=== PATIENT | female | born 1955 | race American Indian/Alaskan Native ===

== ENCOUNTER 2017-02-16 18:30 | Emergency (ER) | payer BC ==
[2017-02-16] MEDS ORDERED: TYLENOL PO ONE (18:49)
--- NOTE | 2017-02-16 18:50 | Emergency Department Report ---
- General Chief Complaint: Fever Stated Complaint: BODYACHES,FEVER,SORETHROAT Time Seen by Provider: 02/16/17 18:46 Source: patient Mode of arrival: Ambulatory Limitations: No Limitations - History of Present Illness Initial Comments: 61-year-old female past medical history hypertension hypothyroidism presents with complaint of onset of sore throat and body aches today. Patient was in usual state of health until today. Denies any nausea or vomiting no significant fevers does state that the body aches are quite bothersome. Feels slightly weaker than usual but is ambulatory and is able to tolerate by mouth without any difficulty reports no nausea no abdominal pain no vomiting. Patient denies any dysuria no foul odor to urine no increased urinary frequency. 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 Exposure to multiple patients with URI strep and flu. Patient is awake alert and oriented 3 does not appear to be in acute distress no recent dental work no recent illnesses no recent antibiotic use. Denies any recent travel outside the country. Is fully ambulatory without assistance. MD Complaint: sore throat, other (body aches) Onset/Timin -: hour(s) Severity: mild Context: sick contacts Associated Symptoms: chills, myalgias, sore throat, cough (very mild cough not productive no respiratory distress) - Related Data Previous Rx's Medication Instructions Recorded Last Taken Type Cephalexin [Keflex] 500 mg PO QID #20 cap 09/26/16 Unknown Rx Sulfamethoxazole/Trimethoprim 1 each PO BID #10 tablet 09/26/16 Unknown Rx [Bactrim DS TAB] Amoxicillin/K Clav Tab [Augmentin 1 tab PO Q12HR #20 tab 02/16/17 Unknown Rx 875 mg] Benzocaine/Menthol [Cepacol Sore 1 each MM Q4H PRN #18 lozenge 02/16/17 Unknown Rx Throat Lozenge] Ibuprofen [Motrin] 600 mg PO Q8H PRN #30 tablet 02/16/17 Unknown Rx Allergies Allergy/AdvReac Type Severity Reaction Status Date / Time No Known Allergies Allergy Unverified 01/19/16 10:25 ED Review of Systems ROS: Stated complaint: BODYACHES,FEVER,SORETHROAT Other details as noted in HPI Constitutional: malaise. denies: chills, fever Eyes: denies: eye pain, eye discharge, vision change ENT: throat pain. denies: ear pain Respiratory: cough. denies: shortness of breath, wheezing Cardiovascular: denies: chest pain, palpitations Endocrine: no symptoms reported Gastrointestinal: denies: abdominal pain, nausea, diarrhea Genitourinary: denies: urgency, dysuria, discharge Musculoskeletal: denies: back pain, joint swelling, arthralgia Skin: denies: rash, lesions Neurological: denies: headache, weakness, paresthesias Psychiatric: denies: anxiety, depression Hematological/Lymphatic: denies: easy bleeding, easy bruising ED Past Medical Hx - Past Medical History Previous Medical History?: Yes Hx Hypertension: Yes - Surgical History Past Surgical History?: No - Social History Smoking Status: Never Smoker Substance Use Type: None - Medications Home Medications: Home Medications Medication Instructions Recorded Confirmed Last Taken Type Cephalexin [Keflex] 500 mg PO QID #20 cap 09/26/16 Unknown Rx Sulfamethoxazole/Trimethoprim 1 each PO BID #10 tablet 09/26/16 Unknown Rx [Bactrim DS TAB] Amoxicillin/K Clav Tab [Augmentin 1 tab PO Q12HR #20 tab 02/16/17 Unknown Rx 875 mg] Benzocaine/Menthol [Cepacol Sore 1 each MM Q4H PRN #18 lozenge 02/16/17 Unknown Rx Throat Lozenge] Ibuprofen [Motrin] 600 mg PO Q8H PRN #30 tablet 02/16/17 Unknown Rx ED Physical Exam - General Limitations: No Limitations General appearance: alert, in no apparent distress - Head Head exam: Present: atraumatic, normocephalic - Eye Eye exam: Present: normal appearance, PERRL, EOMI - ENT ENT exam: Present: mucous membranes moist - Expanded ENT Exam Expanded Throat exam: Positive: tonsillar erythema, tonsillar exudate (slight exudates right tonsillar pillar no peritonsillar abscess no visible large purulence oropharynx patent uvula is midline) - Neck Neck exam: Present: normal inspection, full ROM - Respiratory Respiratory exam: Present: normal lung sounds bilaterally. Absent: respiratory distress - Cardiovascular Cardiovascular Exam: Present: regular rate, normal rhythm. Absent: systolic murmur, diastolic murmur, rubs, gallop - GI/Abdominal GI/Abdominal exam: Present: soft, normal bowel sounds - Extremities Exam Extremities exam: Present: normal inspection, full ROM, normal capillary refill - Back Exam Back exam: Present: normal inspection - Neurological Exam Neurological exam: Present: alert, oriented X3, CN II-XII intact, normal gait - Psychiatric Psychiatric exam: Present: normal affect, normal mood - Skin Skin exam: Present: warm, dry, intact, normal color. Absent: rash ED Course Vital Signs 02/16/17 18:39 Temperature 99.9 F H Pulse Rate 94 H Blood Pressure 136/82 O2 Sat by Pulse 100 Oximetry ED Medical Decision Making - Medical Decision Making A/P: Pharyngitis versus tonsillitis 1-as patient is persistently exposed to strep and has visible tonsillar exudates we'll treat empirically, initial test negative throat culture sent. Negative 2-Augmentin 875 twice a day 10 days, Motrin 600 when necessary, throat lozenges when necessary, encourage patient to remain well-hydrated patient is tolerating fluids without significant difficulty. I advised patient to return to the ED if she has any shortness of breath chest pain difficulty swallowing solids or liquids any persistent nausea or vomiting or worsening lethargy. She understood these instructions clearly and will report back if she feels worse. 3-patient states she does not currently have a direct primary care doctor I will refer her to one Critical care attestation.: If time is entered above; I have spent that time in minutes in the direct care of this critically ill patient, excluding procedure time. ED Disposition Clinical Impression: Tonsillitis Disposition: DISCHARGED TO HOME OR SELFCARE Is pt being admited?: No Does the pt Need Aspirin: No Condition: Stable Instructions: Tonsillitis (ED) Prescriptions: Amoxicillin/K Clav Tab [Augmentin 875 mg] 1 tab PO Q12HR #20 tab Benzocaine/Menthol [Cepacol Sore Throat Lozenge] 1 each MM Q4H PRN #18 lozenge PRN Reason: Sore Throat Ibuprofen [Motrin] 600 mg PO Q8H PRN #30 tablet PRN Reason: Pain Referrals: BRYCE RATLIFF MD [Staff Physician] - 3-5 Days [facility] [Provider Group] - 3-[address] [facility] [Outside] - 3-5 Days Forms: Work/School Release Form(ED) Time of Disposition: 19:49
[2017-02-16 20:06] VITALS: BP 121/83
== END 2017-02-16 20:06 | disposition home or self-care (01) ==
LOC: ED 18:30
DX: J03.90 Acute tonsillitis, unspecified (principal); I10 Essential (primary) hypertension
CPT/HCPCS: 87116; 87400; 87430; 99282

== ENCOUNTER 2017-10-19 16:14 | Emergency (ER) | payer BC ==
--- NOTE | 2017-10-19 17:03 | Emergency Department Report ---
HPI - General Chief Complaint: Upper Respiratory Infection Time Seen by Provider: 10/19/17 17:02 - HPI HPI: Is a 62-year-old female presents to ED complaining of sore throat, cough and body aches 2 days. Patient states symptoms began yesterday and got worse over the night. 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 She describes cough as intermittent and nonproductive as needed. She describes the pain is aching in nature but she said that swallow foods and changes with much pain. He denies fevers/chills/nausea/vomiting/abdominal pain/chest pain/shortness of breath. ED Past Medical Hx - Past Medical History Hx Hypertension: Yes - Social History Smoking Status: Never Smoker Substance Use Type: None - Medications Home Medications: Home Medications Medication Instructions Recorded Confirmed Last Taken Type Cephalexin [Keflex] 500 mg PO QID #20 cap 09/26/16 Unknown Rx Sulfamethoxazole/Trimethoprim 1 each PO BID #10 tablet 09/26/16 Unknown Rx [Bactrim DS TAB] Amoxicillin/K Clav Tab [Augmentin 1 tab PO Q12HR #20 tab 02/16/17 Unknown Rx 875 mg] Benzocaine/Menthol [Cepacol Sore 1 each MM Q4H PRN #18 lozenge 02/16/17 Unknown Rx Throat Lozenge] Dextromethorphan/Benzocaine 1 each PO Q4-6H #1 pack 10/19/17 Unknown Rx [Cepacol Sorethroat-Cough Karen] Ibuprofen [Motrin 600 MG tab] 600 mg PO Q8H PRN #30 tablet 10/19/17 Unknown Rx Promethazine /Codeine 5 ml PO QHS PRN #60 ml 10/19/17 Unknown Rx [Phenergan/Codeine 6.25-10 mg/5Ml] guaiFENesin ER [Mucinex ER] 600 mg PO Q12H #20 tablet.er 10/19/17 Unknown Rx ED Review of Systems ROS: Stated complaint: COLD SYMPTOMS Other details as noted in HPI Constitutional: denies: chills, fever Eyes: denies: eye pain, eye discharge, vision change ENT: denies: ear pain, throat pain Respiratory: denies: cough, shortness of breath, wheezing Cardiovascular: denies: chest pain, palpitations Endocrine: no symptoms reported Gastrointestinal: denies: abdominal pain, nausea, diarrhea Genitourinary: denies: urgency, dysuria, discharge Musculoskeletal: denies: back pain, joint swelling, arthralgia Skin: denies: rash, lesions Neurological: denies: headache, weakness, paresthesias Psychiatric: denies: anxiety, depression Hematological/Lymphatic: denies: easy bleeding, easy bruising Physical Exam - Physical Exam Physical Exam: GENERAL: Alert and oriented x3, no apparent distress, Normal Gait, atraumatic. HEAD: Head is normocephalic and a-traumatic. EYES: Extra ocular muscles are intact. Pupils are equal, round, and reactive to light and accommodation. EARS: symetrical, atraumatic, non tender, ear canal clear and moderate cerumen, tympanic membrance non inflamed. gross auditory nml bilaterally. NOSE: Nose symetrical, Nontender,Nares appeared normal. MOUTH:Mouth is well hydrated and without lesions. Tonsils nonerythematous or swollen, Uvula midline, Tongue not elevated. Mucous membranes are moist. Posterior pharynx clear, no exudate or lesions. Patent airways. NECK: Supple. Non edematous, No lymphadenopathy or thyromegaly. LUNGS: Symetrical with respiration, No wheezing, no rales or crackles, CTAB. HEART: S1, S2 present, regular rate and rhythm without murmur, no rubs, no gallops. Non tender to palpation SKIN: Warm and dry, No lesions, No ulceration or induration present. ED Medical Decision Making - Lab Data - Medical Decision Making This 62-year-old female presents with viral syndrome. ED course: Patient received prednisone, Tylenol in ED Patient was sent home with symptomatic relief medications. I discussed the patient gets rest, drink plenty of fluids and increase her vitamin C intake I discussed the patient has symptoms resolve on its own give or take a week Patient's alert and oriented times 3. Vital signs are normal, patient is in no acute or respiratory discharge. Patient will be discharged home with instructions. Critical care attestation.: If time is entered above; I have spent that time in minutes in the direct care of this critically ill patient, excluding procedure time. ED Disposition Clinical Impression: URI (upper respiratory infection) Qualifiers: URI type: unspecified URI Qualified Code(s): J06.9 - Acute upper respiratory infection, unspecified Disposition: DC-01 TO HOME OR SELFCARE Is pt being admited?: No Does the pt Need Aspirin: No Condition: Stable Instructions: Upper Respiratory Infection (ED) Additional Instructions: Make sure to follow up with the primary care physician as discussed. Take all your medications as you've been prescribed. If you have any worsening symptoms or develop new symptoms please return to ED immediately. Prescriptions: Promethazine /Codeine [Phenergan/Codeine 6.25-10 mg/5Ml] 5 ml PO QHS PRN #60 ml PRN Reason: cough Dextromethorphan/Benzocaine [Cepacol Sorethroat-Cough Karen] 1 each PO Q4-6H #1 pack guaiFENesin ER [Mucinex ER] 600 mg PO Q12H #20 tablet.er Ibuprofen [Motrin 600 MG tab] 600 mg PO Q8H PRN #30 tablet PRN Reason: Pain Referrals: PRIMARY CAREMD [Primary Care Provider] - 3-5 Days AMNA MELTON MD [Referring] - 3-5 Days AXEL SOLIS MD [Referring] - 3-5 Days Time of Disposition: 18:22
[2017-10-19] MEDS ORDERED: TYLENOL PO ONE (17:08)
[2017-10-19] MEDS ORDERED: ROBITUSSIN PO ONE (17:08)
[2017-10-19] MEDS ORDERED: DELTASONE PO ONE (17:08)
== END 2017-10-19 18:56 | disposition home or self-care (01) ==
LOC: ED 16:14
DX: J06.9 Acute upper respiratory infection, unspecified (principal)
CPT/HCPCS: 99282; J7512

== ENCOUNTER 2017-11-16 07:34 | Emergency (ER) | payer BC ==
[2017-11-16 08:00] VITALS: BP 117/86
[2017-11-16] MEDS ORDERED: TORADOL IM ONE (08:33)
--- NOTE | 2017-11-16 08:39 | Emergency Department Report ---
HPI - General Chief Complaint: Extremity Injury, Lower Time Seen by Provider: 11/16/17 08:14 - HPI HPI: Patient is a 62-year-old female with no prior medical history who presents to the ED complaining left anterior thigh pain 2 days. Patient states yesterday she was distended and has a glass flower pot and she heard a ''pop'' in her left thigh. Patient states yesterday the pain was as aggravated by today she feels the patient is a bit worse. Patient states pain is localized to the left anterior thigh. Patient states she is able to walk but walking aggravates the thigh pain. she describes pain as throbbing/aching in nature, nonradiating. She denies fevers/chills/other trauma/loss of sensation or feeling in thighs, bleeding, laceration, chest pain, shortness of breath or dizziness ED Past Medical Hx - Past Medical History Hx Hypertension: Yes Additional medical history: hyperthyroidism - Surgical History Additional Surgical History: back surgery 2011 - Social History Smoking Status: Never Smoker Substance Use Type: None - Medications Home Medications: Home Medications Medication Instructions Recorded Confirmed Last Taken Type Cephalexin [Keflex] 500 mg PO QID #20 cap 09/26/16 Unknown Rx Sulfamethoxazole/Trimethoprim 1 each PO BID #10 tablet 09/26/16 Unknown Rx [Bactrim DS TAB] Amoxicillin/K Clav Tab [Augmentin 1 tab PO Q12HR #20 tab 02/16/17 Unknown Rx 875 mg] Benzocaine/Menthol [Cepacol Sore 1 each MM Q4H PRN #18 lozenge 02/16/17 Unknown Rx Throat Lozenge] Dextromethorphan/Benzocaine 1 each PO Q4-6H #1 pack 10/19/17 Unknown Rx [Cepacol Sorethroat-Cough Karen] Ibuprofen [Motrin 600 MG tab] 600 mg PO Q8H PRN #30 tablet 10/19/17 Unknown Rx Promethazine /Codeine 5 ml PO QHS PRN #60 ml 10/19/17 Unknown Rx [Phenergan/Codeine 6.25-10 mg/5Ml] guaiFENesin ER [Mucinex ER] 600 mg PO Q12H #20 tablet.er 10/19/17 Unknown Rx Cyclobenzaprine [Flexeril] 10 mg PO QHS PRN #24 tablet 11/16/17 Unknown Rx Ibuprofen [Motrin 800 MG tab] 800 mg PO Q8HR PRN #30 tablet 11/16/17 Unknown Rx ED Review of Systems ROS: Stated complaint: L LEG PAIN Other details as noted in HPI Constitutional: denies: chills, fever Eyes: denies: eye pain, eye discharge, vision change ENT: denies: ear pain, throat pain Respiratory: denies: cough, shortness of breath, wheezing Cardiovascular: denies: chest pain, palpitations Endocrine: no symptoms reported Gastrointestinal: denies: abdominal pain, nausea, diarrhea Genitourinary: denies: urgency, dysuria, discharge Musculoskeletal: myalgia. denies: back pain, joint swelling, arthralgia Skin: denies: rash, lesions Neurological: denies: headache, weakness, numbness, paresthesias, confusion, abnormal gait Psychiatric: denies: anxiety, depression Hematological/Lymphatic: denies: easy bleeding, easy bruising Physical Exam - Physical Exam Vital Signs: Vital Signs 11/16/17 07:54 Temperature 97.9 F Pulse Rate 73 Respiratory 18 Rate Blood Pressure 117/86 Blood Pressure 117/86 [Right] O2 Sat by Pulse 98 Oximetry Physical Exam: GENERAL: Alert and oriented x3, no apparent distress, Normal Gait, atraumatic. HEAD: Head is normocephalic and a-traumatic. LUNGS: Symetrical with respiration, No wheezing, no rales or crackles, CTAB. HEART: S1, S2 present, regular rate and rhythm without murmur, no rubs, no gallops. Non tender to palpation BACK: Full range of motion, no spinal tenderness, nontender to palpation. EXTREMITIES/MUSCULOSKELETAL: No cyanosis, clubbing, rash, lesions or edema. Full ROM in knee and hip joints bilaterally. UE/LE Pulses 2+ bilaterally. LE and UE 5+ strength bilaterally, straight leg raise negative bilaterally, no calf tenderness, Homans sign negative. Mild tenderness to palpation of the left anterior thigh muscles. No swelling, no ecchymosis noted NEUROLOGIC: The patient is cooperative with no focal neurologic deficits. Normal speech. Normal sensation in bilateral upper and lower extremities, No loss of sensation, SKIN: Warm and dry, No lesions, No ulceration or induration present. ED Course Vital Signs 11/16/17 07:54 Temperature 97.9 F Pulse Rate 73 Respiratory 18 Rate Blood Pressure 117/86 Blood Pressure 117/86 [Right] O2 Sat by Pulse 98 Oximetry ED Medical Decision Making - Medical Decision Making 62-year-old female presents with thigh muscle pain ED course: Patient received Toradol and Robaxin ED I discussed with patient to rest her thigh and should avoid strenuous activities within the next couple of days I Discussed warm baths with Epsom salts and heat compression 2 times a day to the left thigh Vital signs are normal patient is in no acute distress Discussed with patient follow-up with primary care physician. Discussed the patient and take medications as prescribed. Patient has no neurological deficit. Patient is alert and oriented 3 and understands all instructions given. Discussed drowsiness effect of Flexeril makes her drowsy and not to operate machinery while taking flexeril Critical care attestation.: If time is entered above; I have spent that time in minutes in the direct care of this critically ill patient, excluding procedure time. ED Disposition Clinical Impression: Muscle ache of extremity, Myalgia Disposition: TO HOME OR SELFCARE Is pt being admited?: No Does the pt Need Aspirin: No Condition: Stable Instructions: Trigger Point Pain (ED), Musculoskeletal Pain (ED), Heat Pack Application (ED) Additional Instructions: Make sure to follow up with the primary care physician as discussed. Take all your medications as you've been prescribed. If you have any worsening symptoms or develop new symptoms please return to ED immediately. Prescriptions: Cyclobenzaprine [Flexeril] 10 mg PO QHS PRN #24 tablet PRN Reason: Muscle Spasm Ibuprofen [Motrin 800 MG tab] 800 mg PO Q8HR PRN #30 tablet PRN Reason: Pain Referrals: PRIMARY CARE, [Primary Care Provider] - 3-5 Days ANAIS PATEL MD [Referring] - 3-5 Days AXEL SOLIS MD [Referring] - 3-5 Days [facility] [Outside] - 3-5 Days [facility] [Outside] - 3-5 Days Time of Disposition: 09:12
[2017-11-16] MEDS ORDERED: ROBAXIN PO ONE (09:00)
== END 2017-11-16 10:10 | disposition home or self-care (01) ==
LOC: ED 07:34
DX: M79.652 Pain in left thigh (principal); M79.1 Myalgia; I10 Essential (primary) hypertension; E05.90 Thyrotoxicosis, unspecified without thyrotoxic crisis or storm
CPT/HCPCS: 96372; 99282; J1885

== ENCOUNTER 2018-03-08 12:00 | Outpatient (CLI) | payer BC ==
[2018-03-08 12:32] LABS: Hematocrit 36.6 % (30.3-42.9); Hemoglobin 11.8 gm/dl (10.1-14.3); Mean Corpuscular HGB Conc 32 % (30-34); Mean Corpuscular Hemoglobin 26 pg (28-32); Mean Corpuscular Volume 81 fl (79-97); Platelet Count 302 K/mm3 (140-440); Red Blood Count 4.54 M/mm3 (3.65-5.03); Red Cell Distribution Width 14.3 % (13.2-15.2)
[2018-03-08 12:49] LABS: Albumin 3.8 g/dL (3.9-5); BUN/Creatinine Ratio 22; Blood Urea Nitrogen 24 mg/dL (7-17); Calcium 9.6 mg/dL (8.4-10.2); Hemolysis Index 108
[2018-03-08 12:51] LABS: Alanine Aminotransferase 34 units/L (7-56)
[2018-03-08 12:56] LABS: Free T4 (Free Thyroxine) 1.04 ng/dL (0.76-1.46)
== END 2018-03-08 12:01 | disposition home or self-care (01) ==
LOC: LAB 12:00
PROVIDERS: ATTEND Specialist
DX: E04.1 Nontoxic single thyroid nodule (principal); E05.90 Thyrotoxicosis, unspecified without thyrotoxic crisis or storm; I10 Essential (primary) hypertension; Z79.899 Other long term (current) drug therapy
CPT/HCPCS: 36415; 80053; 84439; 84443; 84481; 85027

== ENCOUNTER 2018-04-01 14:16 | Emergency (ER) | payer BC ==
[2018-04-01 15:16] VITALS: BP 122/83
[2018-04-01] MEDS ORDERED: ANTIVERT PO ONE (15:21)
--- NOTE | 2018-04-01 15:24 | Emergency Department Report ---
ED Dizziness HPI - General Chief Complaint: Dizziness Stated Complaint: DIZZINESS Time Seen by Provider: 04/01/18 15:21 Source: patient Mode of arrival: Ambulatory Limitations: No Limitations - History of Present Illness Initial Comments: 62 year old female with a past medical history hypertension and hypothyroidism presents to the hospital complains of sudden onset of dizziness while ambulating. Patient states she felt like "the matrix" and thinks that things started spinning around. She almost lost her balance and had to sit down immediately. She denies nausea, vomiting, headache, focal weakness, focal numbness, chest pain, shortness of breath, diarrhea, melena, hematochezia, or hematemesis. Similar symptoms this past fall while out of town but more severe at that time. Previous symptoms accompanied with nausea, vomiting, and more severe dizziness. The symptoms spontaneously resolved without treatment. She denies tinnitus, ear pain, sinus pain, and decreased hearing. - Related Data Previous Rx's Medication Instructions Recorded Last Taken Type Cephalexin [Keflex] 500 mg PO QID #20 cap 09/26/16 Unknown Rx Sulfamethoxazole/Trimethoprim 1 each PO BID #10 tablet 09/26/16 Unknown Rx [Bactrim DS TAB] Amoxicillin/K Clav Tab [Augmentin 1 tab PO Q12HR #20 tab 02/16/17 Unknown Rx 875 mg] Benzocaine/Menthol [Cepacol Sore 1 each MM Q4H PRN #18 lozenge 02/16/17 Unknown Rx Throat Lozenge] Dextromethorphan/Benzocaine 1 each PO Q4-6H #1 pack 10/19/17 Unknown Rx [Cepacol Sorethroat-Cough Karen] Ibuprofen [Motrin 600 MG tab] 600 mg PO Q8H PRN #30 tablet 10/19/17 Unknown Rx Promethazine /Codeine 5 ml PO QHS PRN #60 ml 10/19/17 Unknown Rx [Phenergan/Codeine 6.25-10 mg/5Ml] guaiFENesin ER [Mucinex ER] 600 mg PO Q12H #20 tablet.er 10/19/17 Unknown Rx Cyclobenzaprine [Flexeril] 10 mg PO QHS PRN #24 tablet 11/16/17 Unknown Rx Ibuprofen [Motrin 800 MG tab] 800 mg PO Q8HR PRN #30 tablet 01/04/18 Unknown Rx Meclizine [Antivert] 25 mg PO TID PRN #30 tablet 04/01/18 Unknown Rx Ondansetron [Zofran Odt] 4 mg PO Q8HR PRN #20 tab.rapdis 04/01/18 Unknown Rx Allergies Allergy/AdvReac Type Severity Reaction Status Date / Time No Known Allergies Allergy Unverified 01/19/16 10:25 ED Review of Systems ROS: Stated complaint: DIZZINESS Other details as noted in HPI Comment: All other systems reviewed and negative ED Past Medical Hx - Past Medical History Hx Hypertension: Yes Additional medical history: hyperthyroidism - Surgical History Additional Surgical History: back surgery 2011 - Social History Smoking Status: Never Smoker Substance Use Type: None - Medications Home Medications: Home Medications Medication Instructions Recorded Confirmed Last Taken Type Cephalexin [Keflex] 500 mg PO QID #20 cap 09/26/16 Unknown Rx Sulfamethoxazole/Trimethoprim 1 each PO BID #10 tablet 09/26/16 Unknown Rx [Bactrim DS TAB] Amoxicillin/K Clav Tab [Augmentin 1 tab PO Q12HR #20 tab 02/16/17 Unknown Rx 875 mg] Benzocaine/Menthol [Cepacol Sore 1 each MM Q4H PRN #18 lozenge 02/16/17 Unknown Rx Throat Lozenge] Dextromethorphan/Benzocaine 1 each PO Q4-6H #1 pack 10/19/17 Unknown Rx [Cepacol Sorethroat-Cough Karen] Ibuprofen [Motrin 600 MG tab] 600 mg PO Q8H PRN #30 tablet 10/19/17 Unknown Rx Promethazine /Codeine 5 ml PO QHS PRN #60 ml 10/19/17 Unknown Rx [Phenergan/Codeine 6.25-10 mg/5Ml] guaiFENesin ER [Mucinex ER] 600 mg PO Q12H #20 tablet.er 10/19/17 Unknown Rx Cyclobenzaprine [Flexeril] 10 mg PO QHS PRN #24 tablet 11/16/17 Unknown Rx Ibuprofen [Motrin 800 MG tab] 800 mg PO Q8HR PRN #30 tablet 11/16/17 Unknown Rx Meclizine [Antivert] 25 mg PO TID PRN #30 tablet 04/01/18 Unknown Rx Ondansetron [Zofran Odt] 4 mg PO Q8HR PRN #20 tab.rapdis 04/01/18 Unknown Rx ED Physical Exam - General Limitations: No Limitations - Other Other exam information: General: No limitations, patient is alert in no acute distress Head exam: Atraumatic, normocephalic Eyes exam: Normal appearance, pupils equal reactive to light, extraocular movements intact. Fatiguing lateral nystagmus with left and right gaze ENT: Moist mucous membrane, normal oropharynx, b/l TM normal with good light reflex, no cerumen impaction Neck exam: Normal inspection, full range of motion, no meningismus nontender Respiratory exam: Clear to auscultation bilateral, no wheezes, rales, crackles Cardiovascular: Normal rate and rhythm, normal heart sounds Abdomen: Soft, nondistended, and nontender, with normal bowel sounds, no rebound, or guarding Extremity: Full range of motion normal inspection no deformity Back: Normal Inspection, full range of motion, no tenderness Neurologic: Alert, oriented x3, cranial nerves intact, no motor or sensory deficit, finger nose finger function intact Psychiatric: normal affect, normal mood Skin: Warm, dry, intact ED Course Vital Signs 04/01/18 04/01/18 14:30 15:15 Temperature 97.3 F L Pulse Rate 72 Pulse Rate [ 66 Sitting] Pulse Rate [ 73 Standing] Respiratory 16 Rate Blood Pressure 128/80 Blood Pressure 122/83 [Sitting] Blood Pressure 127/85 [Standing] O2 Sat by Pulse 100 Oximetry - Reevaluation(s) Reevaluation #1: 04/01/18 15:57 pt received meclizine. feels better ED Medical Decision Making - Medical Decision Making Sx suggestive of vertigo, - Differential Diagnosis vertigo, dehydration, anemia, cva, vbi Critical Care Time: No Critical care attestation.: If time is entered above; I have spent that time in minutes in the direct care of this critically ill patient, excluding procedure time. ED Disposition Clinical Impression: Dizziness, Vertigo Disposition: DC-01 TO HOME OR SELFCARE Is pt being admited?: No Does the pt Need Aspirin: No Condition: Stable Instructions: Vertigo (ED) Additional Instructions: Take the medication as prescribed. Return is symptoms worsen as indicated by your discharge instructions. Prescriptions: Meclizine [Antivert] 25 mg PO TID PRN #30 tablet PRN Reason: Vertigo Ondansetron [Zofran Odt] 4 mg PO Q8HR PRN #20 tab.rapdis PRN Reason: Nausea And Vomiting Referrals: SAUL AGUILAR MD [Staff Physician] - 3-5 Days (ENT doctor) MATEO OSULLIVAN MD [Staff Physician] - 3-5 Days (ENT doctor) PRIMARY CAREMD [Primary Care Provider] - 3-5 Days Time of Disposition: 16:02
== END 2018-04-01 16:16 | disposition home or self-care (01) ==
LOC: ED 14:16
DX: R42 Dizziness and giddiness (principal); I10 Essential (primary) hypertension; E05.90 Thyrotoxicosis, unspecified without thyrotoxic crisis or storm
CPT/HCPCS: 93005; 93010; 99282

== ENCOUNTER 2019-04-22 10:07 | Emergency (ER) | payer BC ==
[2019-04-22] MEDS ORDERED: DECADRON IM ONE (10:29)
[2019-04-22] MEDS ORDERED: ROBAXIN PO STA (10:29)
[2019-04-22] MEDS ORDERED: NORCO 7.5/325 PO ONE (10:30)
--- NOTE | 2019-04-22 10:31 | Emergency Department Report ---
HPI - General Chief Complaint: Extremity Problem,Nontraumatic Time Seen by Provider: 04/22/19 10:28 - HPI HPI: Condition is a very pleasant 63-year-old who comes to the ER today with left lower extremity pain. She has had previous spine surgery. The pain is suggestive of sciatica given its radiation and pattern of radiation down the leg. She denies any systemic symptoms. There is no nausea vomiting diarrhea. The pain does not wake her from sleep. However, she cannot get comfortable when sleeping. She denies nausea vomiting diarrhea or bloody stools. Patient is on Ultram, Flexeril, methIMAZOLE, and a PPI. Patient is ambulatory to the [facility] ency room. ED Past Medical Hx - Past Medical History Previous Medical History?: Yes Hx Hypertension: Yes Additional medical history: hyperthyroidism - Surgical History Past Surgical History?: Yes Additional Surgical History: back surgery 2011 - Family History Family history: no significant - Social History Smoking Status: Never Smoker Substance Use Type: None - Medications Home Medications: Home Medications Medication Instructions Recorded Confirmed Last Taken Type Cyclobenzaprine [Flexeril] 10 mg PO TID PRN #10 tablet 04/22/19 Unknown Rx HYDROcodone/APAP 5-325 [[place] 1 each PO Q6HR PRN #10 tablet 04/22/19 Unknown Rx 5/325] Naproxen [Naprosyn] 500 mg PO BID PRN #20 tablet 04/22/19 Unknown Rx predniSONE [Deltasone] 20 mg PO DAILY #5 tablet 04/22/19 Unknown Rx ED Review of Systems ROS: Stated complaint: LFT LEG PAIN Other details as noted in HPI Comment: All other systems reviewed and negative Physical Exam - Physical Exam Vital Signs: Vital Signs 04/22/19 10:13 Temperature 98.2 F Pulse Rate 83 Respiratory 16 Rate Blood Pressure 128/97 O2 Sat by Pulse 99 Oximetry Physical Exam: WDWN patient in NAD VS per RN flow sheet Alert and oriented to person, place and time. S1-S2. No S3 or S4. No systolic or diastolic murmur. No JVD. No pitting maxx a. Lungs clear to auscultation bilaterally anteriorly and posteriorly. Abdomen soft nontender bowel sounds x 4 NO CVA TENDERNESS pos left straight leg raise OF LLE. PAIN PATTERN SUGGESTIVE OF SCIATICA WITH PAIN OF ANT LAT QUAD AREA. NO EDEMA OR SWELLING OF LEG. DP PLUS 2 BILATERAL C SPINE TENDERNESS NO RECENT TRAUMA OR FALL Moves all extremities well. Mood and affect appropriate. ED Course Vital Signs 04/22/19 10:13 Temperature 98.2 F Pulse Rate 83 Respiratory 16 Rate Blood Pressure 128/97 O2 Sat by Pulse 99 Oximetry ED Medical Decision Making - Radiology Data Radiology results: report reviewed, image reviewed - Medical Decision Making Vital Signs 04/22/19 10:13 Temperature 98.2 F Pulse Rate 83 Respiratory 16 Rate Blood Pressure 128/97 O2 Sat by Pulse [address] NOTED PT MEDICATED FOR PAIN AND THE MEDS PROVIDED RELIEF WILL DC HOME WITH ORTHO FOLLOW UP. 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 Yes Hx Hypertension Yes Additional medical history hyperthyroidism Past Surgical History? Yes Additional Surgical History back surgery 2011 Last Vital Signs Temp Pulse Resp BP Pulse Ox 98.2 F 74 18 137/98 100 04/22/19 10:13 04/22/19 14:11 04/22/19 14:11 04/22/19 14:11 04/22/19 14:11 Allergies Allergy/AdvReac Type Severity Reaction Status Date / Time No Known Allergies Allergy Verified 04/22/19 10:15 Medications Discontinued Medications Generic Name Dose Route Start Last Admin Trade Name Freq PRN Reason Stop Dose Admin Acetaminophen/Hydrocodone Bitart 1 each 04/22/19 10:30 04/22/19 10:43 [place] 7.5/325 PO 04/22/19 10:31 1 each ONCE ONE Administration Dexamethasone 8 mg 04/22/19 10:29 04/22/19 10:43 Decadron IM 04/22/19 10:30 8 mg ONCE ONE Administration Methocarbamol 500 mg 04/22/19 10:29 04/22/19 11:05 Robaxin PO 04/22/19 10:30 500 mg ONCE STA Administration Active orders 04/22/19 00:00 CT lumbar spine wo con Stat 04/22/19 10:29 dexAMETHasone [Decadron] 8 mg IM ONCE ONE methOCARBAMOL [Robaxin] 500 mg PO ONCE STA 04/22/19 10:30 HYDROcodone/APAP 7.5-325 [[place] 7.5/325] 1 each PO ONCE ONE Providers Visit Care Team Role Provider Type MD PRIMARY CARE Primary Care Provider Referring JIGNESH VOGEL MD Emergency Provider Staff Physician Last Name: MIKE Status: Discharged First Name: ANIYA Priority: 4 - Semi-urgent Middle: BLAIR Condition: Stable Birthdate: 1955 Arrival Date/Time: 04/22/19 10:07 Age: 63 Arrival Mode: CAR/PERSONAL TRANSPORT Sex: F Triaged At: 04/22/19 10:09 Language: Time Seen by Provider: 04/22/19 10:28 Stated Complaint: LFT LEG PAIN Chief Complaint: Extremity Problem,Nontraumatic ED Location: [facility] Area: Station: Group: ED Provider: JIGNESH VOGEL ED Midlevel Provider: IRENA GRACE ED Nurse: Primary Care Provider: PRIMARY CAREMD Critical care attestation.: If time is entered above; I have spent that time in minutes in the direct care of this critically ill patient, excluding procedure time. ED Disposition Clinical Impression: Sciatica, Lower extremity pain Disposition: - TO HOME OR SELFCARE Is pt being admited?: No Does the pt Need Aspirin: No Condition: Stable Instructions: Lumbar Radiculopathy (ED), Arthralgia (ED) Additional Instructions: DIET TOLERATED MEDS ORDERED TODAY IN ER FOLLOW INSTRUCTIONS ON THE BOTTLE FOLLOW UP PCP WITHIN 48 HOURS TO ENSURE YOU ARE GETTING BETTER ACTIVITY TOLERATED MOTRIN OR TYLENOL FOR PAIN OR FEVER RETURN TO THE ER FOR WORSENING SYMPTOMS NOT RELIEVED BY YOUR MEDICATIONS. follow up with ortho elan Prescriptions: predniSONE [Deltasone] 20 mg PO DAILY #5 tablet Cyclobenzaprine [Flexeril] 10 mg PO TID PRN #10 tablet PRN Reason: Muscle Spasm Naproxen [Naprosyn] 500 mg PO BID PRN #20 tablet PRN Reason: Pain HYDROcodone/APAP 5-325 [[place] 5/325] 1 each PO Q6HR PRN #10 tablet PRN Reason: Pain Referrals: PRIMARY CAREMD [Primary Care Provider] - 3-5 Days CHRIST COSTELLO MD [Staff Physician] - 3-5 Days Forms: Work/School Release Form(ED) Time of Disposition: 12:57
--- NOTE | 2019-04-22 12:44 | Cat Scan Report ---
CT LUMBAR SPINE WITHOUT CONTRAST HISTORY: Severe lower back pain, radiculopathy to left lower extremity. TECHNIQUE: Helical CT with sagittal and coronal reformatted images. FINDINGS: There has been previous disc spacer placement and unilateral posterior fusion on the left side at L3-4 level. Please correlate with history. There is normal height and alignment of the lumbar vertebral bodies. No evidence for fracture, subluxation or suspicious bony lesion. L1-2: No abnormality. L2-3: No abnormality. L3-4: Posterior fusion changes on the left side are again noted. Moderate hypertrophic changes in the left facet joint and mild heterotopic calcifications are identified resulting in moderate to severe left neural foraminal narrowing. Left neural foraminal stenosis is estimated at 50-75%. L4-5: A mild diffuse posterior bulging disc is identified. Mild facet arthropathy. Bilateral neural foraminal narrowing is estimated at 50%. L5-S1: No significant abnormality. IMPRESSION: No acute process. Surgical changes as described. Neural foraminal narrowing is suspected at L3-4 on the left side and L4-5 bilaterally. Please see above.
[2019-04-22 14:15] VITALS: BP 137/98
== END 2019-04-22 14:11 | disposition home or self-care (01) ==
LOC: ED 10:07
DX: M54.30 Sciatica, unspecified side (principal); I10 Essential (primary) hypertension; E05.90 Thyrotoxicosis, unspecified without thyrotoxic crisis or storm
CPT/HCPCS: 72131; 96372; 99283; J1100

== ENCOUNTER 2019-04-30 14:07 | Outpatient (CLI) | payer BC ==
--- NOTE | 2019-04-30 14:47 | XRay Report ---
LEFT HIP, 2 views: History: Pain, sciatica The bony architecture is intact without evidence of fracture or dislocation. No significant soft tissue abnormality is seen. IMPRESSION: Normal left hip.
--- NOTE | 2019-04-30 14:52 | XRay Report ---
AP AND LATERAL LUMBOSACRAL SPINE: History: Back pain, sciatica left-sided Unilateral left posterior fusion at L3-4 is again noted. The disc spacer device at L3-4 has migrated posteriorly and left laterally since the operative films dated 01/19/10. The clinical significance of this is unclear. It does not appear to project into the spinal canal. There is normal height and alignment of the lumbar vertebra. Mild disc space narrowing is noted at L2-3, L4-5 and L5-S1. There is diffuse facet arthropathy throughout the lumbar region. Mild hypertrophic changes have developed at L3-4, L4-5 and L5-S1. The sacrum and SI joints are unremarkable. IMPRESSION: Lumbar surgical changes as described. The left transpedicular screws at L3-4 are unchanged. However, the disc spacer device at L3-4 is in a slightly different position since the operative films in 2009. The spacer device appears more posterior and to the left. The clinical significance of this is unclear. Mild to moderate lumbar spondylosis as described.
== END 2019-04-30 14:08 | disposition home or self-care (01) ==
LOC: XRAY 14:07
PROVIDERS: ATTEND Internal Medicine
DX: M47.816 Spondylosis without myelopathy or radiculopathy, lumbar region (principal); M25.552 Pain in left hip; I10 Essential (primary) hypertension
CPT/HCPCS: 72100